=== PATIENT | female | born 2000 | race Caucasian/White ===

== ENCOUNTER 2020-07-13 22:33 | Emergency (ER) | payer OTHER ==
[~2020-07-13] VITALS: Ht 175.3 cm; Wt 72.6 kg
[2020-07-13 22:35] VITALS: BP 140/84
[2020-07-13 23:20] LABS: URINE BILIRUBIN NEGATIVE (Negative); URINE BLOOD NEGATIVE (Negative); URINE CLARITY CLEAR; URINE COLOR YELLOW; URINE GLUCOSE-RANDOM* NEGATIVE (Negative); URINE KETONES NEGATIVE (Negative); URINE NITRITE-REFLEX NEGATIVE (Negative); URINE PROTEIN (DIPSTICK) NEGATIVE (Negative); URINE UROBILINOGEN 0.2 E.U./dl (0.2-1.0)
[2020-07-13 23:24] LABS: URINE LEUKOCYTES-REFLEX 1+ (Negative)
[2020-07-13 23:33] LABS: CASTS None Seen /LPF (None Seen); MUCUS 0-3 Light strn/LPF (None Seen); SQUAMOUS 0-3 Few /LPF (0-3)
[2020-07-13 23:42] LABS: BACTERIA-REFLEX 1-9 Few /HPF (None Seen); CRYSTALS None Seen /LPF (None Seen); URINE RBC None Seen /HPF (0-2); URINE WBC-REFLEX 0-5 Rare /HPF (0-5)
== END 2020-07-14 01:05 | disposition left against medical advice (07) ==
LOC: ER 22:33
PROVIDERS: Emergency Medicine
DX: Z11.3 Encounter for screening for infections with a predominantly sexual mode of transmission (principal); N89.8 Other specified noninflammatory disorders of vagina; Z53.21 Procedure and treatment not carried out due to patient leaving prior to being seen by health care provider

== ENCOUNTER 2021-07-10 10:20 | Emergency (ER) | payer OTHER ==
[~2021-07-10] VITALS: Ht 175.3 cm; Wt 73.5 kg
[2021-07-10 10:28] VITALS: BP 108/72
== END 2021-07-10 11:22 | disposition home or self-care (01) ==
LOC: ER 10:20
DX: U07.1 COVID-19 (principal); R06.02 Shortness of breath